=== PATIENT | female | born 1965 | race Caucasian/White ===

== ENCOUNTER 2020-02-20 09:00 | Outpatient (CLI) | payer OTHER, SELFPAY ==
--- NOTE | 2020-02-20 09:07 | MM_ITS ---
WS: [id number] BILATERAL DIGITAL SCREENING MAMMOGRAPHY WITH CAD CLINICAL INFORMATION: SCREEN HISTORY: Screening mammogram. No current complaints. COMPARISON: None. TECHNIQUE: Bilateral CC and MLO views. FINDINGS: The breasts are composed of heterogeneous fibroglandular density tissue, which can limit the detectio n of small underlying mass lesions. Oval shaped increasing density deep left breast best visualized o n the cc view near the 3:00 position. This measures approximately 10 mm and recommend further evaluat ion with LEFT DIAGNOSTIC MAMMOGRAPHY AND ULTRASOUND. Right breast is unchanged in appearance. Stable clustered calcifications right breast. MM/[place] [id number] IMPRESSION: BI-RADS: 0-Incomplete: Need additional imaging evaluation FOLLOW UP: Need Additional Imaging
== END 2020-02-20 09:01 | disposition home or self-care (01) ==
LOC: RADSHAW 09:00
PROVIDERS: PCP Electrodiagnostic Medicine; Visit Provider Nurse Practitioner Women's Health
DX: Z12.31 Encounter for screening mammogram for malignant neoplasm of breast (principal)
CPT/HCPCS: 77067

== ENCOUNTER 2020-02-23 08:51 | Outpatient (CLI) | payer OTHER, SELFPAY ==
--- NOTE | 2020-02-23 09:04 | MM_ITS ---
WS: [id number] LEFT DIGITAL MAMMOGRAPHY WITH CAD CLINICAL INFORMATION: LEFT BREAST LUM COMPARISON: 02/20/2020 and 12/06/2018 TECHNIQUE: 3 views of the left breast were obtained. FINDINGS: The left breast is composed of heterogeneous fibroglandular density tissue, which can limit the detec tion of small underlying mass lesions. Previously described oval-shaped asymmetric density deep left breast best seen on the cc position is unchanged on the spot compression views.. Ultrasound is pendin g. ULTRASOUND BREAST LEFT TECHNIQUE: Ultrasound left breast focused area of concern. CLINICAL INFORMATION: LEFT BREAST LUMP FINDINGS: Ultrasound left breast at the 3:00 position. Hypoechoic cystic appearing lesion at the 3:00 position measuring 6.4 x 7.2 x 3.4 mm. Increased through transmission. Small amount of internal debris. Findin gs are most consistent with complex cyst. This is probably benign and recommend 6 month follow-up to confirm stability with left diagnostic mammography and ultrasound. MM/MM diagnostic mammo [id number] IMPRESSION: BI-RADS: 3-Probably Benign FOLLOW UP: 6 Month Follow-up
--- NOTE | 2020-02-23 10:15 | US_ITS ---
WS: [id number] LEFT DIGITAL MAMMOGRAPHY WITH CAD CLINICAL INFORMATION: LEFT BREAST LUM COMPARISON: 02/20/2020 and 12/06/2018 TECHNIQUE: 3 views of the left breast were obtained. FINDINGS: The left breast is composed of heterogeneous fibroglandular density tissue, which can limit the detec tion of small underlying mass lesions. Previously described oval-shaped asymmetric density deep left breast best seen on the cc position is unchanged on the spot compression views.. Ultrasound is pendin g. ULTRASOUND BREAST LEFT TECHNIQUE: Ultrasound left breast focused area of concern. CLINICAL INFORMATION: LEFT BREAST LUMP FINDINGS: Ultrasound left breast at the 3:00 position. Hypoechoic cystic appearing lesion at the 3:00 position measuring 6.4 x 7.2 x 3.4 mm. Increased through transmission. Small amount of internal debris. Findin gs are most consistent with complex cyst. This is probably benign and recommend 6 month follow-up to confirm stability with left diagnostic mammography and ultrasound. US/US breast LT limited* [id number] IMPRESSION: BI-RADS: 3-Probably Benign FOLLOW UP: 6 Month Follow-up
== END 2020-02-23 08:52 | disposition home or self-care (01) ==
LOC: RADSHAW 08:55
PROVIDERS: PCP Electrodiagnostic Medicine; Visit Provider Nurse Practitioner Women's Health
DX: N60.02 Solitary cyst of left breast
CPT/HCPCS: 76642; 77065

== ENCOUNTER → 2020-05-02 13:36 | Outpatient (BNVA) | payer OTHER, SELFPAY | PROVIDERS: PCP Electrodiagnostic Medicine; Visit Provider Nurse Practitioner Family | DX: Z20.89 Contact with and (suspected) exposure to other communicable diseases (principal); R05 Cough; R50.9 Fever, unspecified | CPT/HCPCS: 87635 ==

== ENCOUNTER 2020-09-10 08:02 | Outpatient (CLI) | payer OTHER, SELFPAY ==
--- NOTE | 2020-09-10 08:00 | MM_ITS ---
WS: [id number] DIAGNOSTIC LEFT DIGITAL MAMMOGRAM WITH CAD LEFT breast ultrasound, limited HISTORY: Left breast mass COMPARISON: 02/23/2020, 02/20/2020 and 12/06/2018 Technique: CC, MLO and ML views. Spot compression LEFT CC and MLO Breast composition: The breasts are heterogeneously dense, which may obscure small masses. No discre te nodule identified. There is some very mild asymmetry at the 3:00 position which has slightly impro teto as compared to the prior study. No suspicious mass or interval change. LEFT breast ultrasound, limited. Ultrasound at 3:00 demonstrates an ovoid hypoechoic nodule 1 cm from the nipple measuring 5 x 5 x 2 m m. Additional hypoechoic nodule with through transmission at 3:00 2 cm from the nipple measures 9 x 5 x 4 mm. Both of these nodules were present on 02/23/2020 without significant increase in size. No cristal id mass. MM/[place] [id number] IMPRESSION: BI-RADS: 2-Benign FOLLOW UP: See Report Return to annual screening. Screening mammogram should be in February 2021.
== END 2020-09-10 08:03 | disposition home or self-care (01) ==
LOC: RADSHAW 08:05
PROVIDERS: PCP Electrodiagnostic Medicine; Visit Provider Nurse Practitioner Women's Health
DX: N63.25 Unspecified lump in the left breast, overlapping quadrants (principal)
CPT/HCPCS: 76642; 77065

== ENCOUNTER 2021-03-01 15:09 | Outpatient (CLI) | payer OTHER, SELFPAY ==
--- NOTE | 2021-03-01 15:30 | MM_ITS ---
WS: [id number] BILATERAL DIGITAL SCREENING MAMMOGRAPHY WITH CAD CLINICAL INFORMATION: Z12.39 - Encounter for other screening for malignant neoplasm of breast HISTORY: Screening mammogram. No current complaints. COMPARISON: September 10, 2020 TECHNIQUE: Bilateral CC and MLO views. FINDINGS: The breasts are composed of heterogeneous fibroglandular density tissue, which can limit the detectio n of small underlying mass lesions. No suspicious mass, asymmetry, calcifications, or architectural d istortion. No evidence of malignancy. Punctate calcifications. Stable clustered calcifications right breast. Vascular calcifications. MM/[place] [id number] IMPRESSION: BI-RADS: 2-Benign FOLLOW UP: 1 Year Follow-up Recommend return to annual screening mammography.
== END 2021-03-01 15:10 | disposition home or self-care (01) ==
LOC: RADSHAW 15:16
PROVIDERS: PCP Electrodiagnostic Medicine; Visit Provider Nurse Practitioner Women's Health
DX: Z12.31 Encounter for screening mammogram for malignant neoplasm of breast (principal)
CPT/HCPCS: 77067

== ENCOUNTER → 2022-03-20 13:23 | Outpatient (BNVA) | payer OTHER, SELFPAY | PROVIDERS: PCP Electrodiagnostic Medicine; Visit Provider Family Medicine | DX: Z00.00 Encounter for general adult medical examination without abnormal findings (principal); Z13.220 Encounter for screening for lipoid disorders | CPT/HCPCS: 80053; 80061; 85025 ==

== ENCOUNTER 2022-04-11 09:05 | Outpatient (CLI) | payer OTHER, SELFPAY ==
--- NOTE | 2022-04-11 09:12 | MM_ITS ---
WS: [id number] BILATERAL SCREENING DIGITAL BREAST TOMOSYNTHESIS MAMMOGRAM WITH CAD HISTORY: SCREENING COMPARISON: 03/01/2021, 09/10/2020 and 11/30/2017 Bilateral CC and MLO views with tomosynthesis and synthetic mammography submitted. Computer aided det ection analyzed. Breast composition: The breasts are heterogeneously dense, which may obscure small masses. No suspici ous masses, microcalcifications or architectural distortion. Clustered calcifications in the central RIGHT breast are stable. Benign 5 mm nodule in the superior posterior RIGHT breast seen on the latera l projection. MM/[place] [id number] IMPRESSION: BI-RADS: 2-Benign FOLLOW UP: 1 Year Follow-up
== END 2022-04-11 09:06 | disposition home or self-care (01) ==
LOC: RAD 09:09
PROVIDERS: PCP Family Medicine; Visit Provider Nurse Practitioner Women's Health
DX: Z12.31 Encounter for screening mammogram for malignant neoplasm of breast (principal)
CPT/HCPCS: 77063; 77067

== ENCOUNTER 2023-04-24 08:31 | Outpatient (CLI) | payer OTHER, SELFPAY ==
--- NOTE | 2023-04-24 08:40 | MM_ITS ---
WS: [id number] Bilateral screening 3D tomosynthesis digital mammogram, 04/24/2023 Clinical Data: SCREENING Comparison: 04/11/2022, 03/01/2021, 09/10/2020, 02/23/2020, 02/20/2020, 12/06/2018, 11/30/2017, 11/10/2016, 1 11/28/2014, 09/25/2014, 09/12/2013, 08/06/2012, 07/18/2011, 06/28/2018, 06/15/2009, 06/07/2008, 11/24/2006. Findings: The breast parenchymal pattern shows heterogeneous density. No spiculated masses or clustered calcifi cations are seen. There are no secondary signs of carcinoma. MM/[place] [id number] Impression: 1. Negative bilateral mammogram unchanged. 2. Recommend annual screening mammograms. BIRADS: 1-Negative FOLLOW UP: 1 Year Follow-up The CAD counter checker was used.
== END 2023-04-24 08:32 | disposition home or self-care (01) ==
PROVIDERS: PCP Nurse Practitioner Women's Health; Visit Provider Nurse Practitioner Women's Health
DX: Z12.31 Encounter for screening mammogram for malignant neoplasm of breast (principal)
CPT/HCPCS: 77063; 77067

== ENCOUNTER → 2023-05-01 09:00 | Outpatient (BNVA) | payer OTHER, SELFPAY | PROVIDERS: PCP Nurse Practitioner Women's Health; Visit Provider Nurse Practitioner Women's Health | DX: Z01.419 Encounter for gynecological examination (general) (routine) without abnormal findings (principal); Z12.4 Encounter for screening for malignant neoplasm of cervix; N94.10 Unspecified dyspareunia | CPT/HCPCS: 87624 ==

== ENCOUNTER → 2023-07-18 16:55 | Outpatient (BNVA) | payer OTHER, SELFPAY | PROVIDERS: PCP Family Medicine; Visit Provider Emergency Medicine | DX: S99.912A Unspecified injury of left ankle, initial encounter (principal); X58.XXXA Exposure to other specified factors, initial encounter | CPT/HCPCS: 73610; 73630 ==

== ENCOUNTER → 2023-08-24 08:08 | Outpatient (BNVA) | payer OTHER, SELFPAY | PROVIDERS: PCP Family Medicine; Visit Provider Family Medicine | DX: E55.9 Vitamin D deficiency, unspecified (principal); Z51.81 Encounter for therapeutic drug level monitoring; Z13.220 Encounter for screening for lipoid disorders; Z00.00 Encounter for general adult medical examination without abnormal findings | CPT/HCPCS: 80053; 80061; 82306; 85025 ==

== ENCOUNTER → 2023-10-16 11:26 | Outpatient (BNVA) | payer OTHER, SELFPAY | PROVIDERS: PCP Family Medicine; Visit Provider Nurse Practitioner Women's Health | DX: Z12.4 Encounter for screening for malignant neoplasm of cervix (principal); R87.615 Unsatisfactory cytologic smear of cervix | CPT/HCPCS: 87624 ==

== ENCOUNTER 2024-05-04 13:52 | Outpatient (CLI) | payer OTHER, SELFPAY ==
--- NOTE | 2024-05-04 13:56 | MM_ITS ---
WS: [id number] BILATERAL 3D TOMOSYNTHESIS DIGITAL SCREENING MAMMOGRAPHY WITH CAD CLINICAL INFORMATION: SCREENING HISTORY: Screening mammogram. No current complaints. COMPARISON: 2022 TECHNIQUE: Bilateral CC and MLO views. FINDINGS: The breasts are composed of heterogeneous fibroglandular density tissue, which can limit the detectio n of small underlying mass lesions. No suspicious mass, asymmetry, calcifications, or architectural d istortion. No evidence of malignancy. Few tiny incidental punctate calcifications. MM/[place] [id number] IMPRESSION: BI-RADS: 2-Benign FOLLOW UP: 1 Year Follow-up Recommend return to annual screening mammography.
== END 2024-05-04 13:53 | disposition home or self-care (01) ==
LOC: RAD 13:52
PROVIDERS: PCP Family Medicine; Visit Provider Family Medicine
DX: Z12.31 Encounter for screening mammogram for malignant neoplasm of breast (principal); R92.333 Mammographic heterogeneous density, bilateral breasts; R92.323 Mammographic fibroglandular density, bilateral breasts; R92.1 Mammographic calcification found on diagnostic imaging of breast
CPT/HCPCS: 77063; 77067

== ENCOUNTER 2025-05-26 10:55 | Outpatient (CLI) | payer OTHER, SELFPAY ==
--- NOTE | 2025-05-26 11:01 | MM_ITS ---
WS: [id number] BILATERAL SCREENING DIGITAL TOMOSYNTHESIS MAMMOGRAM WITH CAD HISTORY: Z12.31 - Encounter for screening mammogram for malignant ... COMPARISON: 05/04/2024, 04/11/2022 Bilateral CC and MLO views with tomosynthesis and synthetic mammography submitted. Computer aided detection analyzed. Breast composition: The breasts are heterogeneously dense, which may obscure small masses. No suspicious masses, microcalcifications or architectural distortion. Numerous calcifications within each breast, greatest on the RIGHT. No suspicious clustering of calcifications. Benign 4 mm mass previously de scribed in the superior RIGHT breast. No change. MM/MM scr [place] tomosynthesis [id number] IMPRESSION: BI-RADS: 2 - Benign FOLLOW UP: 1 Year Follow-up
== END 2025-05-26 10:56 | disposition home or self-care (01) ==
PROVIDERS: Family Provider Nurse Practitioner Women's Health; PCP Family Medicine; Visit Provider Family Medicine
DX: Z12.31 Encounter for screening mammogram for malignant neoplasm of breast (principal); R92.333 Mammographic heterogeneous density, bilateral breasts; R92.1 Mammographic calcification found on diagnostic imaging of breast; D24.1 Benign neoplasm of right breast
CPT/HCPCS: 77063; 77067

== ENCOUNTER 2025-06-05 14:59 | Outpatient (CLI) | payer OTHER, SELFPAY ==
--- NOTE | 2025-06-05 15:00 | XR_ITS ---
WS: [id number] DEXA (DUAL ENERGY X-RAY ABSORPTIOMETRY) Bone mineral density was performed using a [employer] machine. HISTORY: Z13.820 - Encounter for screening for osteoporosis COMPARISON: None available. Lumbar spine BMD (L1-L4): 0.974 g/cm2 T score: -1.7 Z score: -0.3 Total hip BMD: Left: 0.704 g/cm2. T score: -2.4 Z score: -1.3 Right: 0.701 g/cm2. T score: -2.4 Z score: -1.3 10 year probability of a major osteoporotic fracture is 12.8%. XR/XR DEXA axial skeleton* [id number] IMPRESSION: OSTEOPENIA based upon the WHO classification for females.
== END 2025-06-05 15:00 | disposition home or self-care (01) ==
LOC: RAD 15:01
PROVIDERS: PCP Family Medicine; Visit Provider Nurse Practitioner Women's Health
DX: Z13.820 Encounter for screening for osteoporosis (principal); Z78.0 Asymptomatic menopausal state; M85.80 Other specified disorders of bone density and structure, unspecified site
CPT/HCPCS: 77080

== ENCOUNTER → 2025-08-21 13:45 | Outpatient (BNVA) | payer OTHER, SELFPAY | PROVIDERS: PCP Family Medicine; Visit Provider Family Medicine | DX: Z00.00 Encounter for general adult medical examination without abnormal findings (principal); E55.9 Vitamin D deficiency, unspecified; K14.6 Glossodynia; Z51.81 Encounter for therapeutic drug level monitoring; E53.8 Deficiency of other specified B group vitamins | CPT/HCPCS: 80053; 82306; 82607; 82746; 84439; 84443; 85025; 86038 ==